=== PATIENT | male | born 1995 | race Caucasian/White ===

== ENCOUNTER 2017-04-30 19:29 | Emergency (ER) | payer BC, OTHER ==
[~2017-04-30] VITALS: Ht 182.9 cm; Wt 83.0 kg
[~2017-04-30 19:29] MED LIST: VNTHFA/IN INH
[2017-04-30 19:31] VITALS: TEMP 37.2; Ht 182.9 cm; Wt 83.0 kg
[2017-04-30] MEDS ORDERED: XYLOCAINE 1%/SOD BICARB 20 ML VIAL INFIL ONE (19:45)
--- NOTE | 2017-04-30 20:09 | EMERGENCY ROOM VISIT NOTE ---
History First contact with patient: 19:36 Chief Complaint: LACERATION/CUT (SUT/DERMABOND) Stated Complaint: L LEG LACERATION Nursing Triage Summary: Lac to Left anterior vogt obtained by hitting fender of car while moving materials. History of Present Illness The patient is a 22 year old male who presents to the Emergency Room with complaints of a laceration to his left leg. He and friends were attempting to push an automobile onto a trailer when he hit his left leg against the trailer fender, cutting his leg. He rates his discomfort a 5 out of 10. The patient believes that his tetanus shot is up-to-date within the past 10 years. Review of Systems 10 system review was performed and was negative except for pertinent positives and negatives as indicated in history of present illness Past Medical/Surgical History Medical Problems: (1) Asthma, Unspecified (2) [place] Tear Med Men (3) Sprain Cruciate Lig Knee Surgical Problems: (1) History of arthroscopy of knee Family History No significant family history Social History Smoking Status: Never Smoker Alcohol Use: none Marital Status: single Occupation Status: student Current/Historical Medications Scheduled PRN Albuterol Hfa (Ventolin Hfa), 2-4 PUFFS INH Q6H PRN for SOB/Wheezing Physical Exam Vital Signs Date Time Temp Pulse Resp B/P (MAP) Pulse Ox O2 Delivery O2 Flow Rate FiO2 04/30/17 19:31 37.2 120 18 134/84 97 Room Air Physical Exam CONSTITUTIONAL: Healthy and well nourished. Alert and oriented X 3 with positive affect. HEENT: Normocephalic, atraumatic. Pupils equal, round and reactive. NECK: Full active range of motion without discomfort. MUSCULOSKELETAL: Examination of the left anterior leg shows a 6 cm vertical laceration without active bleeding or hematoma formation. There is no soft tissue loss or gross wound contamination. Patient ambulated into the emergency department without antalgic gait. INTEGUMENTARY: No rash or other significant dermatologic conditions noted. NEUROLOGIC: Left lower extremity is sensory intact. Medical Decision & Procedures Procedure Laceration repair was performed under local anesthesia after receiving verbal consent from the patient. Using buffered 1% lidocaine without epinephrine, good local anesthesia was administered. The wound was then peripherally cleansed with iodine, then copiously pressure irrigated with 100 mL of normal saline. The wound was then approximated using 4-0 nylon simple interrupted sutures 10. Bacitracin dressing was applied. ED Course Patient history and physical exam were performed. Nurse's notes were reviewed. Vital signs were reviewed and normal. Laceration repair was performed under local anesthesia. The patient was provided additional verbal and written wound care instructions. Ice and elevation for swelling. Ibuprofen and Tylenol as needed for pain. Suture removal in 12-14 days, or seek reevaluation sooner for any signs of wound infection. The patient was happy with plan of care, voiced understanding of all discharge instructions, and rated his pain a 2 out of 10 at the time of discharge. Medical Decision Medication Reconcilliation Current Medication List: was personally reviewed by mo Blood Pressure Screening Patient's blood pressure: Normal blood pressure Impression Primary Impression: Laceration of left leg Departure Information Dispostion Home / Self-Care Forms HOME CARE DOCUMENTATION FORM, IMPORTANT VISIT INFORMATION Patient Instructions My [facility] Additional Instructions Keep wound clean and dry. Do not allow any crusting or dried blood to accumulate on sutures. If this occurs, use a 1:1 solution of hydrogen peroxide/ water on a Q-tip to clean the wound. Use an antibiotic ointment for 3-4 days, then let wound dry. Suture removal in 12-14 days. Return sooner for any signs of infection (increasing redness, swelling, drainage). Ice and elevate for swelling and pain. Ibuprofen 600 mg and/or Tylenol 1000 mg every 6 hrs as needed for pain. Problem Qualifiers Primary Impression: Laceration of left leg Encounter type: initial encounter Qualified Codes: S81.812A - Laceration without foreign body, left lower leg, initial encounter
[2017-04-30] MEDS ORDERED: SYMIN160 INH (20:10)
[2017-04-30] MEDS ORDERED: FLUT0.15 NAE (20:10)
[2017-04-30 20:19] VITALS: BP 128/73; PULSE 82; O2SAT 98
== END 2017-04-30 20:20 | disposition home or self-care (01) ==
LOC: C.EDB 19:29 → C.EDD 20:20
DX: S81.812A Laceration without foreign body, left lower leg, initial encounter (principal); W22.8XXA Striking against or struck by other objects, initial encounter; J45.909 Unspecified asthma, uncomplicated; Z87.828 Personal history of other (healed) physical injury and trauma; Z98.890 Other specified postprocedural states

== ENCOUNTER 2017-07-02 16:29 | Emergency (ER) | payer OTHER, BC ==
[~2017-07-02] VITALS: Ht 182.9 cm; Wt 75.0 kg
[~2017-07-02 16:29] MED LIST changes: +FLUT0.15 NAE; +SYMIN160 INH
[2017-07-02 16:30] VITALS: TEMP 36.7; Ht 182.9 cm; Wt 75.0 kg
[2017-07-02] MEDS ORDERED: LIDOCAINE/EPINEPHRINE 1% 20 ML VIAL INFIL ONE (16:45)
--- NOTE | 2017-07-02 17:13 | EMERGENCY ROOM VISIT NOTE ---
ED Visit Note First contact with patient: 16:34 CHIEF COMPLAINT: Scalp laceration HISTORY OF PRESENT ILLNESS: This 22-year-old male patient presents emergency department, ambulatory, approximately 30 minutes after obtaining a laceration of the scalp. The patient states he was at work, and did not realize there was a bike tire on the rack came on the wall. The patient went to remove a ladder which was nearby, and inadvertently hit the bike tire which then fell onto his head. The patient states the wheel was not very heavy, and he is not certain exactly how the wheel hit his head. The patient does report some initial bleeding, states it was easily controlled. There was no loss of consciousness, blurry vision, nausea, vomiting, or unusual behavior afterwards. The patient rates the pain as throbbing and 3/10. The patient denies neck pain. The bleeding has stopped. The patient's tetanus shot is up to date. REVIEW OF SYSTEMS: A 6 system review of systems was completed with positives and pertinent negatives listed in the HPI. ALLERGIES: None MEDICATIONS: Symbicort, Ventolin PMH: Asthma SOCIAL HISTORY: The patient lives locally with family. He denies drug, alcohol , tobacco use. PHYSICAL EXAM: Vital Signs: Reviewed Nurse's notes, vital signs stable. GENERAL : This is a 22-year-old male, in no acute distress, well-developed, well- nourished. NEURO: Patient was alert and oriented to person place and time. Sensory and motor functions grossly intact. No focal neurologic deficits. Normal sensation to light and sharp touch. EYES: PERRLA. EOMI. Fundoscopic exam without hemorrhages or papilledema. EARS: No hemotympanum. No garcia sign or mastoid tenderness. SKIN: There is a 1.5 cm laceration on the superior , posterior aspect of the scalp whose edges are gaping apart. There is no active bleeding. The wound is clean and there are no deep structures present. NECK: Supple, cervical spine nontender to palpation. EMERGENCY DEPARTMENT COURSE: I examined the patient. Verbal consent was obtained to perform the procedure. Using sterile technique the wound was cleaned with Betadine. The area was sterilely draped. 3 ml of 1% lidocaine with epinephrine was used to anesthetize the patient's scalp. Once the patient was numb, the wound was copiously irrigated under pressure with sterile saline. The wound was explored and there were no deep structures present. The laceration was repaired using 5 brook with the wound edges being well approximated. The patient tolerated the procedure well. The bleeding stopped. The area was cleaned with sterile saline and dressed with bacitracin ointment. I did have a discussion with the patient regarding the options for CT scan. The patient is not having any neurological symptoms and he did not lose consciousness. The patient states that he feels comfortable without having a CT scan performed, and will return immediately for any concerning neurological symptoms. The patient was discharged home in good condition. I attest that I have personally reviewed the patient's current medication list. Patient was found to have normal blood pressure on screening and does not require follow-up. DIFFERENTIAL DIAGNOSIS: Laceration, contusion, intracranial hemorrhage, skull fracture, headache, and others DIAGNOSIS: Scalp laceration DISCHARGE INSTRUCTIONS: You have received 5 brook on your scalp. These brook are NOT dissolvable and WILL need to be removed by a health care provider in 10 days. You can return to the Emergency Department or contact your Primary Care Provider to have these brook removed. Proper wound care is essential for adequate wound healing and infection prevention. You can shower and clean the wound with soap and water. Do scour over the wound, pat dry with a towel. Do not submerse the wound until the brook have been removed. You can use an antibiotic ointment with a dressing over the wound for the next 3-4 days. After this time you may leave the wound dry and open to the air. If crust develops over the wound you can use a Q-tip to apply a 1:1 peroxide:water solution to clean the wound. Look for signs of infection of the wound including: increased pain, swelling, foul discharge, streaking, or increased temperature. If any of these are noticed you should return to the Emergency Department for further assessment and treatment. As with any laceration you may have received nerve damage to the surrounding tissues. This damage may or may not be permanent. For pain control, you can use the following wvlk-wei-[id number] medicines (if >12 yo): - Regular strength (325mg/tab) Tylenol (acetaminophen) 2 tabs every 4-6 hours as needed. Do not exceed 9 tablets in a 24 hour period. Avoid taking more than 3 grams (3000 mg) of Tylenol per day. This includes any other sources of acetaminophen you may take on a regular basis. - Regular strength (200 mg/tab) Advil (ibuprofen) 1-2 tabs every 4-6 hours as needed. Do not exceed a dose of 2400 mg per day. Return to the emergency department if your symptoms worsen despite treatment course outlined above, or if you experience any dizziness, lightheadedness, nausea, vomiting, visual disturbances, numbness or tingling, or facial droop on one side of the face, or other concerning symptoms. Current/Historical Medications Scheduled Budesonide/Formoterol Fumarate (Symbicort 160/4.5 Inhaler ), 2 PUFFS INH BID Fluticasone Propionate (Nasal) (Flonase Allergy Relief), 1 SPRAY CELESTINA DAILY Scheduled PRN Albuterol Hfa (Ventolin Hfa), 2-4 PUFFS INH Q6H PRN for SOB/Wheezing Allergies Coded Allergies: Pecan (Unverified Allergy, Unknown, UNKNOWN, 07/02/17) [place] (Unverified Allergy, Unknown, UNKNOWN, 07/02/17) Vital Signs Date Time Temp Pulse Resp B/P (MAP) Pulse Ox O2 Delivery O2 Flow Rate FiO2 07/02/17 17:38 68 16 122/81 100 07/02/17 16:30 36.7 66 16 136/88 99 Room Air Departure Information Impression Primary Impression: Scalp laceration Dispostion Home / Self-Care Condition GOOD Referrals No Doctor, Assigned (PCP) Patient Instructions ED Laceration Scalp Stitch Or Stap, [employer] Additional Instructions You have received 5 brook on your scalp. These brook are NOT dissolvable and WILL need to be removed by a health care provider in 10 days. You can return to the Emergency Department or contact your Primary Care Provider to have these brook removed. Proper wound care is essential for adequate wound healing and infection prevention. You can shower and clean the wound with soap and water. Do scour over the wound, pat dry with a towel. Do not submerse the wound until the brook have been removed. You can use an antibiotic ointment with a dressing over the wound for the next 3-4 days. After this time you may leave the wound dry and open to the air. If crust develops over the wound you can use a Q-tip to apply a 1:1 peroxide:water solution to clean the wound. Look for signs of infection of the wound including: increased pain, swelling, foul discharge, streaking, or increased temperature. If any of these are noticed you should return to the Emergency Department for further assessment and treatment. As with any laceration you may have received nerve damage to the surrounding tissues. This damage may or may not be permanent. For pain control, you can use the following ahuw-crb-vlkkiwj medicines (if >12 yo): - Regular strength (325mg/tab) Tylenol (acetaminophen) 2 tabs every 4-6 hours as needed. Do not exceed 9 tablets in a 24 hour period. Avoid taking more than 3 grams (3000 mg) of Tylenol per day. This includes any other sources of acetaminophen you may take on a regular basis. - Regular strength (200 mg/tab) Advil (ibuprofen) 1-2 tabs every 4-6 hours as needed. Do not exceed a dose of 2400 mg per day. Return to the emergency department if your symptoms worsen despite treatment course outlined above, or if you experience any dizziness, lightheadedness, nausea, vomiting, visual disturbances, numbness or tingling, or facial droop on one side of the face, or other concerning symptoms. Problem Qualifiers Primary Impression: Scalp laceration Encounter type: initial encounter Qualified Codes: S01.01XA - Laceration without foreign body of scalp, initial encounter
[2017-07-02 17:38] VITALS: BP 122/81; PULSE 68; O2SAT 100
== END 2017-07-02 17:38 | disposition home or self-care (01) ==
LOC: C.EDB 16:29 → C.EDD 17:38
DX: S01.01XA Laceration without foreign body of scalp, initial encounter (principal); W20.8XXA Other cause of strike by thrown, projected or falling object, initial encounter; J45.909 Unspecified asthma, uncomplicated

== ENCOUNTER 2017-07-13 15:19 | Emergency (ER) | payer OTHER, BC ==
[~2017-07-13] VITALS: Ht 182.9 cm; Wt 77.1 kg
[2017-07-13 15:23] VITALS: BP 125/78; PULSE 69; TEMP 36.4; O2SAT 99; Ht 182.9 cm; Wt 77.1 kg
--- NOTE | 2017-07-13 15:32 | EMERGENCY ROOM VISIT NOTE ---
ED Visit Note First contact with patient: 15:27 CHIEF COMPLAINT: Suture removal This patient returns to the ED today for removal of sutures that were placed 10- 11 days ago. There has been no swelling, redness, or drainage from the wound. The patient feels like the laceration is healing well. REVIEW OF SYSTEMS: Head: No headache, injury or neck pain. Skin: No rash, new lesions, or masses. General: No fever or chills, fatigue, loss of appetite , or significant recent weight gain or loss. PMH: The patient is healthy; there is no significant medical or surgical history. SOCIAL HISTORY: Patient lives at home. PHYSICAL EXAM: Vital Signs: Reviewed Nurse's notes. There is a sutured wound on the right occipital region with no signs of infection. There is no erythema , swelling, or tenderness. EMERGENCY DEPARTMENT COURSE: The sutures were removed without any difficulty and there was no separation of the wound edges. Current/Historical Medications Scheduled Budesonide/Formoterol Fumarate (Symbicort 160/4.5 Inhaler ), 2 PUFFS INH BID Fluticasone Propionate (Nasal) (Flonase Allergy Relief), 1 SPRAY CELESTINA DAILY Scheduled PRN Albuterol Hfa (Ventolin Hfa), 2-4 PUFFS INH Q6H PRN for SOB/Wheezing Allergies Coded Allergies: Pecan (Unverified Allergy, Unknown, UNKNOWN, 07/02/17) [place] (Unverified Allergy, Unknown, UNKNOWN, 07/02/17) Vital Signs Date Time Temp Pulse Resp B/P (MAP) Pulse Ox O2 Delivery O2 Flow Rate FiO2 07/13/17 15:23 36.4 69 18 125/78 99 Room Air Departure Information Impression Primary Impression: Encounter for removal of brook Dispostion Home / Self-Care Condition GOOD Referrals No Doctor, Assigned (PCP) Patient Instructions My [facility] Additional Instructions DISCHARGE INSTRUCTIONS AND TREATMENT: Wash any remaining crusts off of the wound today and resume your normal activities.
== END 2017-07-13 15:45 | disposition home or self-care (01) ==
LOC: C.EDB 15:20 → C.EDD 15:45
DX: Z48.02 Encounter for removal of sutures (principal); S01.01XA Laceration without foreign body of scalp, initial encounter; W20.8XXA Other cause of strike by thrown, projected or falling object, initial encounter